=== PATIENT | female | born 1990 | race African-American/Black ===

== ENCOUNTER 2017-05-09 00:03 | Emergency (ER) | payer OTHER ==
[~2017-05-09] VITALS: Ht 157.5 cm; Wt 100.0 kg
[2017-05-09 00:05] VITALS: BP 142/75; PULSE 94; RESP 15; TEMP 98.7; O2SAT 100
[2017-05-09] MEDS ORDERED: BACT800T5 PO (00:16)
--- NOTE | 2017-05-09 00:21 | PD ---
HPI Chief Complaint: Skin Problem Time Seen by Provider: 00:12 Travel History International Travel<30 days: No Contact w/Intl Traveler<30days: No Traveled to known affect area: No History of Present Illness HPI 26-year-old black female presents from the department with complaints of a infection in her left axilla over last 2 weeks. She states that she has had this multiple times. She has had multiple abscesses in her armpits, under her breasts in the past. She states that the pain is moderate. No alleviating factors. She states that these will open and drain at times. She denies any fever chills. No nausea vomiting. PFSH Past Medical History Narrative Medical History of abscesses. 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 Reported Meds & Prescriptions Reported Meds & Active Scripts Active Bactrim DS (Sulfamethoxazole-Trimethoprim) 800-160 Mg Tab 1 Tab PO BID Review of Systems General / Constitutional: No: Fever Eyes: No: Visual changes HENT: No: Headaches Cardiovascular: No: Chest Pain or Discomfort Respiratory: No: Shortness of Breath Gastrointestinal: No: Abdominal Pain Genitourinary: No: Dysuria Musculoskeletal: No: Pain Skin: Positive Lumps, No Rash Neurologic: No: Weakness Psychiatric: No: Depression Endocrine: No: Polydipsia Hematologic/Lymphatic: No: Easy Bruising Physical Exam Narrative GENERAL: This is a well-nourished, well-developed patient, in no apparent distress. Patient's examined in the presence and the nurse. SKIN: Patient has multiple open draining superficial abscesses to the left axilla. There are multiple scarred areas. There is no fluctuance or pointing. , ecchymoses or lesions. Warm and dry. HEAD: Atraumatic. Normocephalic. EYES: PERRL, EOMI, no discharge or injection. No scleral icterus. EARS: Clear NOSE: Nasal turbinates appear normal. THROAT: Mucosa pink and moist. Airway patent. NECK: Trachea midline. supple, moves head freely. LUNGS: Clear to auscultation. CV: Regular in rhythm. ABDOMEN: Soft nontender. EXT: No clubbing cyanosis or edema. Data Data Last Documented VS Vital Signs Date Time Temp Pulse Resp B/P (MAP) Pulse Ox O2 Delivery O2 Flow Rate FiO2 05/09/17 00:05 98.7 94 15 142/75 (97) 100 Room Air Orders Orders Sulfamet-Trimeth Ds 800-160 Mg (Bactrim (05/09/17 00:30) Ed Discharge Order (05/09/17 00:17) MDM Medical Decision Making Medical Screen Exam Complete: Yes Emergency Medical Condition: Yes Medical Record Reviewed: Yes Differential Diagnosis MDM: High Differential diagnoses: Abscess, folliculitis, cellulitis, lymphangitis, abrasion, contact dermatitis, hidradenitis Narrative Course Patient has hidradenitis. Patient given Bactrim DS. Diagnosis Primary Impression: Hidradenitis suppurativa of left axilla Patient Instructions: General Instructions Additional Instructions: Rest. Elevation. keep clean and dry. Warm compresses. Daily wound care with soap and water. Bactrim DS. Follow-up with a primary care doctor in one week. Return to the ER for any problems. Med/Other Pt SpecificInfo: Prescription(s) given, Wound Care Scripts Sulfamethoxazole-Trimethoprim (Bactrim DS) 800-160 Mg Tab 1 TAB PO BID for Infection, #20 TAB 0 Refills Prov: Elder Da Silva MD 05/09/17 Disposition: 01 DISCHARGE HOME Condition: Stable Saeed Luke May 09, 2017 00:20
[2017-05-09] MEDS ORDERED: SULFAMETHOXAZOLE-TRIMETHOPRIM DS 800-160 MG TAB PO ONE (00:30)
== END 2017-05-09 00:29 | disposition home or self-care (01) ==
LOC: NEPD 00:03
DX: L73.2 Hidradenitis suppurativa (principal)
CPT/HCPCS: 99283